=== PATIENT | male | born 1955 | race Caucasian/White ===

== ENCOUNTER 2022-11-18 22:31 | Outpatient (REF) | payer MEDICARE, OTHER, SELFPAY ==
[2022-11-18 21:23] LABS: Anion Gap 6.2 mmol/L (3-11); BUN 24 mg/dL (7-18); CO2 30.8 mmol/L (21.0-32.0); CREATININE 1.1 mg/dL (0.70-1.30); Calcium 9.4 mg/dL (8.5-10.1); Chloride 105 mmol/L (98-107); Estimated GFR 73.12 (mL/min/1.73m2); Glucose 135 mg/dL (74-106); Potassium 3.4 mmol/L (3.5-5.1); Sodium 142 mmol/L (136-145)
== END 2022-11-18 22:32 | disposition home or self-care (01) ==
LOC: NCHCN 22:31
PROVIDERS: PCP Internal Medicine; Visit Provider Internal Medicine
DX: I10 Essential (primary) hypertension (principal); F43.21 Adjustment disorder with depressed mood; G20 Parkinson's disease
CPT/HCPCS: 80048